=== PATIENT | male | born 1955 | race Hispanic/Latino ===

== ENCOUNTER 2019-11-18 09:25 | Emergency (ER) | payer OTHER ==
--- OUTSIDE RECORDS SUMMARY | 2019-11-18 09:28 | XMS REPORT | Continuity of Care Document ---
:1955 Author Organization [facility] t Address [address] [place] [address] Care Team Providers Name Role Phone Kojo VERMA, Vickey Ritchie Primary Care Physician Tomás PACE, A Attending Clinician Unavailable Payers Payer Name Policy Type Policy Number Effective Date Expiration Date S ource Problems This patient has no known problems. Allergies, Adverse Reactions, Alerts Allergy Allergy Status Severity Reaction(s) Onset Inactive Treating Comm ents Source Name Type Date Date Clinician No Known DA Active U 2016-05 [facility] Allergie 06-09 Clear s 00:00: [facility] 00 [facility] Social History Social Habit Start Date Stop Date Quantity Comments Source Sex Assigned At Kristin katz [facility] Medications This patient has no known medications. Procedures This patient has no known procedures. Plan of Care Planned Activity Planned Date Details Comments Source Future Scheduled 2019-12-01 INFLUENZA VACCINE [place] [facility] 00:00:00 [code = INFLUENZA VACCINE] Future Scheduled 2019 65+ PNEUMOCOCCAL [place] [facility] Test 00:00:00 VACCINE (1 of 2 - PCV13) [code = 65+ PNEUMOCOCCAL VACCINE (1 of 2 - PCV13)] Future Scheduled 2004 [facility]:00:00 [code = COLONOSCOPY SCREENING] Future Scheduled 2004 SHINGLES VACCINES (#1) Guillermina henley [facility] Test 00:00:00 [code = SHINGLES VACCINES (#1)] Encounters Start End Encounter Admission Attending Care Care Encounter Source Date/Time Date/Time Type Type Clinicians Facility Department ID 2019-04-30 2019-04-30 Emergency E [id number] MH 11:12:00 11:12:00 Damion hermosillo [facility] 2018-12-01 2018-12-01 Telephone [place] [id number] 00:00:00 00:00:00 Sheron MORALES [id number] [facility] [id number] Results This patient has no known results.
--- OUTSIDE RECORDS SUMMARY | 2019-11-18 09:28 | XMS REPORT | Clinical Summary ---
:1955 Author Organization [facility] Address [address] [place] [id number] Care Team Providers Name Role Phone Vickey Varma MD Primary Care Provider Allergies Not on File Medications Not on file Active Problems Not on file Social History Tobacco Use Types Packs/Day Years Used Date Never Assessed Sex Assigned at Date Recorded Not on file Job Start Date Occupation Industry Not on file Not on file Not on file Travel History Travel Start Travel End No recent travel history available. Last Filed Vital Signs Not on file Plan of Treatment Health Maintenance Due Date Last Done Comments COLONOSCOPY SCREENING 2004 SHINGLES VACCINES (#1) 2004 65+ PNEUMOCOCCAL VACCINE (1 of 2 - PCV13) 2019 INFLUENZA VACCINE 12/01/2019 Results Not on fileafter 11/17/2018 [id number] [facility] (Home) JAYMIE RILEY 7751 1 Advance Directives For more information, please contact: [phone] Type Date Recorded Patient Hall Monitor Explanati on Advance Directives, Living Will and Medical Power of Newspaper Writer
--- NOTE | 2019-11-18 10:16 | EDPHYS ---
Physician Documentation [facility] Name: Rene Hall JR. Age: 64 yrs Sex: Male : 1955 Arrival Date: 11/18/2019 Time: 09:29 Bed 17 Private MD: ED Physician Tyrell Napier HPI: 11/17 10:14 This 64 yrs old Male presents to ER via Ambulatory with complaints of Laceration to kb Finger by chainsaw. 10:14 The patient has a laceration related to: working, occurred at home, and there are no kb complicating factors. The injury was accidental. The laceration(s) is(are) located on the palmar aspect of distal phalanx of right thumb. Onset: The symptoms/episode began/occurred just prior to arrival. Associated signs and symptoms: The patient has no apparent associated signs or symptoms. The patient has not experienced similar symptoms in the past. The patient has not recently seen a physician. Pt states the blade of a chainsaw hit his thumb. States he saw the blood, wrapped it and came in. . Historical: - Allergies: 09:56 No Known Allergies; ph - PMHx: 09:56 Diabetes - NIDDM; Hypertension; Asthma; ph - PSHx: 09:56 Kidney removed; ph - Immunization history:: Last tetanus immunization: > 10 years ago. - Social history:: Smoking status: Patient denies any tobacco usage or history of. ROS: 10:11 Constitutional: Negative for fever, chills, and weight loss, Cardiovascular: Negative kb for chest pain, palpitations, and edema, Respiratory: Negative for shortness of breath, cough, wheezing, and pleuritic chest pain, Abdomen/GI: Negative for abdominal pain, nausea, vomiting, diarrhea, and constipation, MS/Extremity: Negative for injury and deformity, Neuro: Negative for headache, weakness, numbness, tingling, and seizure. 10:11 Skin: Positive for laceration(s), of the palmar aspect of distal phalanx of right thumb. Exam: 10:11 Constitutional: This is a well developed, well nourished patient who is awake, alert, kb and in no acute distress. Head/Face: Normocephalic, atraumatic. Chest/axilla: Normal chest wall appearance and motion. Nontender with no deformity. No lesions are appreciated. Cardiovascular: Regular rate and rhythm with a normal S1 and S2. No gallops, murmurs, or rubs. Normal PMI, no JVD. No pulse deficits. Respiratory: Lungs have equal breath sounds bilaterally, clear to auscultation and percussion. No rales, rhonchi or wheezes noted. No increased work of breathing, no retractions or nasal flaring. Abdomen/GI: Soft, non-tender, with normal bowel sounds. No distension or tympany. No guarding or rebound. No evidence of tenderness throughout. MS/ Extremity: Pulses equal, no cyanosis. Neurovascular intact. Full, normal range of motion. Neuro: Awake and alert, GCS 15, oriented to person, place, time, and situation. Cranial nerves II-XII grossly intact. Motor strength 5/5 in all extremities. Sensory grossly intact. Cerebellar exam normal. Normal gait. 10:11 Skin: injury, avulsion(s), 1 cm(s), of the palmar aspect of distal phalanx of right thumb, superficial, thin avulsion that is approx 1cm in length to palmar aspect of right thumb. No injury requiring closure. Vital Signs: 09:53 BP 165 / 89; Pulse 95; Resp 18; Temp 98.2; Pulse Ox 97% on R/A; Weight 113.4 kg; Height ph 5 ft. 8 in. (172.72 cm); Pain 2/10; 09:53 Body Mass Index 38.01 (113.40 kg, 172.72 cm) ph MDM: 09:39 Patient medically screened. kb 10:11 Data reviewed: vital signs, nurses notes. Data interpreted: Pulse oximetry: on room air kb is 97 %. Interpretation: normal. 10:13 Counseling: I had a detailed discussion with the patient and/or guardian regarding: the kb historical points, exam findings, and any diagnostic results supporting the discharge/admit diagnosis, the need for outpatient follow up, a family practitioner, to return to the emergency department if symptoms worsen or persist or if there are any questions or concerns that arise at home. 11/17 10:00 Order name: Wound dressing; Complete Time: 10:45 kb 11/17 10:00 Order name: Wound Care; Complete Time: 10:44 kb Administered Medications: 10:25 Drug: Tetanus-Diphtheria Toxoid Adult 0.5 ml {Unix Consultant: [employer] ([employer]). Exp: ph 06/15/2020. Lot #: [id number]. } Route: IM; Site: right deltoid; 10:47 Follow up: Response: No adverse reaction ph Disposition: 18:10 Co-signature as Attending Physician, Tyrell Napier MD I agree with the assessment and shonna plan of care. Disposition: 11/18/19 10:16 Discharged to Home. Impression: Laceration without foreign body of right thumb without damage to nail. - Condition is Stable. - Discharge Instructions: Laceration Care, Adult, [id number]. - Medication Reconciliation Form, Thank You Letter, Antibiotic Education, Prescription Opioid Use form. - Follow up: Emergency Department; When: As needed; Reason: Worsening of condition. Follow up: Private Physician; When: 2 - 3 days; Reason: Recheck today's complaints, Continuance of care, Re-evaluation by your physician. Signatures: Radha Lawson, ANALYTICAL RESEARCH PROGRAM MANAGER-C ANALYTICAL RESEARCH PROGRAM MANAGER-Tyrell Fregoso MD MD cha Hall, Patricia, RN RN ph Corrections: (The following items were deleted from the chart) 10:14 10:11 Skin: injury, avulsion(s), 1 cm(s), of the palmar aspect of distal phalanx of kb right thumb, superficial, thin avulsion that is approx 1cm in length to palmar aspect of right thumb. No injury requiring intervention, 10:47 10:16 11/18/2019 10:16 Discharged to Home. Impression: Laceration without foreign body ph of right thumb without damage to nail. Condition is Stable. Forms are Medication Reconciliation Form, Thank You Letter, Antibiotic Education, Prescription Opioid Use. Follow up: Emergency Department; When: As needed; Reason: Worsening of condition. Follow up: Private Physician; When: 2 - 3 days; Reason: Recheck today's complaints, Continuance of care, Re-evaluation by your physician. kb
--- NOTE | 2019-11-18 10:16 | ER ---
Nurse's Notes [facility] Name: Rene Hall JR. Age: 64 yrs Sex: Male : 1955 Arrival Date: 11/18/2019 Time: 09:29 Bed 17 Private MD: Diagnosis: Laceration without foreign body of right thumb without damage to nail Presentation: 11/17 09:53 Chief complaint: Patient states: Cut right thumb w/ chain saw while doing yard work, ph laceration noted to pad of R thumb, no bleeding at this time. Coronavirus screen: Patient denies a cough. Patient denies shortness of breath or difficulty breathing. Patient denies measured and/or subjective temperature greater than 100.4F prior to today's visit. Patient denies travel on a cruise ship or to a country the [facility] currently lists as an affected area. Patient denies contact with known and/or suspected case of COVID-19. Proceed with normal triage. Ebola Screen: No symptoms or risks identified at this time. Initial Sepsis Screen: Does the patient meet any 2 criteria? No. Patient's initial sepsis screen is negative. Does the patient have a suspected source of infection? No. Patient's initial sepsis screen is negative. Risk Assessment: Do you want to hurt yourself or someone else? Patient reports no desire to harm self or others. Onset of symptoms was November 18, 2019. 09:53 Method Of Arrival: Ambulatory ph 09:53 Acuity: JUAN 4 ph Historical: - Allergies: 09:56 No Known Allergies; ph - PMHx: 09:56 Diabetes - NIDDM; Hypertension; Asthma; ph - PSHx: 09:56 Kidney removed; ph - Immunization history:: Last tetanus immunization: > 10 years ago. - Social history:: Smoking status: Patient denies any tobacco usage or history of. Screenin:58 Abuse screen: Denies threats or abuse. Denies injuries from another. Nutritional ph screening: No deficits noted. Tuberculosis screening: No symptoms or risk factors identified. Fall Risk None identified. Assessment: 09:58 General: Appears in no apparent distress. comfortable, Behavior is calm, cooperative, ph appropriate for age. Pain: Complains of pain in palmar aspect of distal phalanx of right thumb. Neuro: Level of Consciousness is awake, alert, obeys commands, Oriented to person, place, time, situation. Cardiovascular: Capillary refill < 3 seconds in bilateral fingers Patient's skin is warm and dry. Respiratory: Airway is patent Respiratory effort is even, unlabored, Respiratory pattern is regular, symmetrical. GI:. Derm: Skin is healthy with good turgor, Skin is pink, warm \T\ dry. Musculoskeletal: Circulation, motion, and sensation intact. Range of motion: intact in all extremities. Injury Description: Laceration sustained to palmar aspect of distal phalanx of right thumb is superficial, 0.5 to 2.5 cm long, not bleeding. Vital Signs: 09:53 BP 165 / 89; Pulse 95; Resp 18; Temp 98.2; Pulse Ox 97% on R/A; Weight 113.4 kg; Height ph 5 ft. 8 in. (172.72 cm); Pain 2/10; 09:53 Body Mass Index 38.01 (113.40 kg, 172.72 cm) ph ED Course: 09:29 Patient arrived in ED. bp1 09:39 Radha Lawson FNP-C is PHCP. kb 09:39 Tyrell Napier MD is Attending Physician. kb 09:45 Cara Orr, KATELYNN is Primary Nurse. ph 09:55 Triage completed. ph 09:57 Arm band placed on. ph 09:58 Patient has correct armband on for positive identification. Bed in low position. Call ph light in reach. Side rails up X 1. Pulse ox on. NIBP on. Door closed. Noise minimized. 10:45 No provider procedures requiring assistance completed. Patient did not have IV access ph during this emergency room visit. Wound care: to laceration located on palmar aspect of distal phalanx of right thumb was cleaned with Hibiclens, steri-strips applied Patient tolerated well. Administered Medications: 10:25 Drug: Tetanus-Diphtheria Toxoid Adult 0.5 ml {Route Contractor: [employer] ([employer]). Exp: ph 06/15/2020. Lot #: [id number]. } Route: IM; Site: right deltoid; 10:47 Follow up: Response: No adverse reaction ph Outcome: 10:16 Discharge ordered by . kb 10:47 Discharged to home ambulatory. ph 10:47 Condition: good 10:47 Discharge instructions given to patient, Instructed on discharge instructions, follow up and referral plans. wound care, Demonstrated understanding of instructions, follow-up care, wound care. 10:47 Patient left the ED. ph Signatures: Radha Lawson, CY CHUA-Cara Muñoz RN RN ph Krysten Ontiveros
[2019-11-18] MEDS ORDERED: TETANUS & DIPHTHERIA TOX,ADULT 0.5 ML VIAL ONE (10:20)
[2019-11-18 11:04] VITALS: BP 165/89; TEMP 98.2; O2SAT 97
== END 2019-11-18 10:47 | disposition home or self-care (01) ==
LOC: ER 09:25
DX: S61.011A Laceration without foreign body of right thumb without damage to nail, initial encounter (principal); W29.3XXA Contact with powered garden and outdoor hand tools and machinery, initial encounter; Y93.9 Activity, unspecified; Y92.009 Unspecified place in unspecified non-institutional (private) residence as the place of occurrence of the external cause; Z23 Encounter for immunization; I10 Essential (primary) hypertension
CPT/HCPCS: 90471; 90714; 99283